=== PATIENT | female | born 1985 | race Hispanic/Latino ===

== ENCOUNTER 2018-10-11 18:36 | Emergency (ER) | payer OTHER ==
[~2018-10-11] VITALS: Ht 167.6 cm; Wt 85.3 kg
[2018-10-11 20:07] LABS: BASOPHILS % 0.3 % (0.0-1.0); EOSINOPHILS # (AUTO) 0.1 (0.0-0.4); EOSINOPHILS % 1.8 % (0.0-6.0); HEMATOCRIT 24.9 % (34.2-44.1); HEMOGLOBIN 8.3 g/dL (12.0-16.0); LYMPHOCYTES # (AUTO) 2.1 (1.0-3.2); LYMPHOCYTES % 27.2 % (18.0-39.1); MEAN CORPUSCULAR HEMOGLOBIN 30.9 pg (28-32); MEAN CORPUSCULAR HGB CONC 33.3 g/dL (31-35); MEAN CORPUSCULAR VOLUME 92.6 fL (81-99); MONOCYTES # (AUTO) 0.5 (0.2-0.8); NEUTROPHILS % 63.4 % (38.7-80.0); PLATELET COUNT 523 x10e3/uL (140-360); RED BLOOD COUNT 2.69 x10e6/uL (3.6-5.1)
[2018-10-11 20:10] LABS: BILIRUBIN,URINE NEGATIVE (NEGATIVE); CLARITY,URINE SL CLOUDY (CLEAR); COLOR,URINE YELLOW (YELLOW); KETONES,URINE NEGATIVE (NEGATIVE); LEUKOCYTE ESTERASE ,URINE TRACE (NEGATIVE); NITRITE,URINE NEGATIVE (NEGATIVE); PROTEIN,URINE DIPSTICK NEGATIVE (NEGATIVE); URINE UROBILINOGEN 0.2 mg/dL (0.2 - 1)
[2018-10-11 20:23] LABS: BACTERIA,URINE FEW /HPF; RBC,URINE 21-50 /HPF (0-5); WBC,URINE (MAN) 0-5 /HPF (0-5)
[2018-10-11 20:25] LABS: ALANINE AMINOTRANSFERASE 24 IU/L (0-55); ALBUMIN 4.3 g/dL (3.5-5.0); ALBUMIN/GLOBULIN RATIO 1.1 (0.8-2.0); ALKALINE PHOSPHATASE 107 IU/L (40-150); ANION GAP 14.8 mmol/L (8-16); BLOOD UREA NITROGEN 5 mg/dL (7-26); BUN/CREATININE RATIO 7 (6-25); CALCIUM 9.2 mg/dL (8.4-10.2); CARBON DIOXIDE 21 mmol/L (22-29); CHLORIDE 105 mmol/L (98-107); CREATININE, SERUM 0.68 mg/dL (0.57-1.11); EST GLOMERULAR FILTRATION RATE > 60 ML/MIN (60-); GLUCOSE 97 mg/dL (74-118); POTASSIUM 3.8 mmol/L (3.5-5.1); SODIUM 137 mmol/L (136-145)
[2018-10-11 20:30] LABS: HCG,QUANTITATIVE 339.65 mIU/mL (0-10)
--- NOTE | 2018-10-11 21:49 | Diagnostic Imaging Report ---
EXAM: US OB TRANSVAG 1ST TRI SINGLE DATE: 10/11/2018 12:00 AM INDICATION: Ectopic , bleeding, no pain COMPARISON: None TECHNIQUE: Transvaginal sonographic images of the pelvis were obtained using [place] scale and color doppler. Transvaginal imaging was medically necessary to better evaluate the fetus. LMP 08/22/2018 Beta-hCG 334 FINDINGS: UTERUS: Size: 7.1 x 3.0 x 3.0 Mass: None Endometrial thickness measures 3 mm. No intrauterine . GESTATIONAL SAC: Not present YOLK SAC: Not visualized EMBRYO/FETUS: Now visualized RIGHT OVARY: 2.3 x 1.9 x 1.9 cm No abnormal cysts or masses. LEFT OVARY: 2.8 x 2.0 x 2.2 cm Thick-walled cystic structure felt to be within the left ovary during real-time scanning measuring 1.2 x 1.0 x 1.0 cm with mild peripheral flow. CUL-DE-SAC: Large amount of complex fluid in the pelvis. IMPRESSION: 1. No intrauterine . 2. Large volume complex free fluid. Cannot exclude the presence of a ruptured ectopic given lack of visualized intrauterine . However, thick-walled left adnexal cystic structure was felt to be within the left ovary (corpus luteum) rather than adjacent to the left ovary on real-time imaging and the patient is in reportedly no pain with a low b-hcg. Close attention on clinical follow up. Discussed with Physician: SULMA NAYLOR MD at 9:45 PM on 10/11/2018. Signed by: Dr Belinda Wooten MD on 10/11/2018 9:46 PM
== END 2018-10-11 22:35 | disposition home or self-care (01) ==
LOC: ER 18:36
DX: N93.9 Abnormal uterine and vaginal bleeding, unspecified (principal)
CPT/HCPCS: 36415; 76817; 80053; 81001; 84702; 85025; 99284